=== PATIENT | male | born 1995 | race Caucasian/White ===

== ENCOUNTER 2017-05-27 00:48 | Day surgery (SDC) | payer OTHER ==
[~2017-05-27 00:48] MED LIST: ATOM40 PO; Bactrim Ds Tab1 EACH PO; CALCA400CH PO; CLON.1 PO; CROHNS MED; DIPH50 PO; METO5A PO; NALT50 PO; ONDA4ODT MM; ONDA4ODT PO; PRED10 PO; PROM25 PO; Prednisone20 MG PO; Purinethol50 MG PO; Remicade100 MG IV; SOLU CORTEF IV; Tylenol325 MG PO
[2017-05-27] MEDS ORDERED: INFLECTRA100 MG IV (14:08)
[2017-07-19] MEDS ORDERED: Remicade100 MG IV (11:16)
[2017-07-22] MEDS ORDERED: FAMO40 PO (09:12)
== END 2017-05-27 16:30 | disposition home or self-care (01) ==
LOC: ATC 00:48
DX: K50.90 Crohn's disease, unspecified, without complications (principal); Z83.79 Family history of other diseases of the digestive system
CPT/HCPCS: 96375; 96413; 96415; J1720; J7050; Q0163; Q5102-ZB

== ENCOUNTER 2017-09-07 21:31 | Emergency (ER) | payer OTHER ==
[~2017-09-07] VITALS: Ht 182.9 cm; Wt 63.5 kg
[~2017-09-07 21:31] MED LIST changes: +FAMO40 PO; +INFLECTRA100 MG IV
[2017-09-07 22:09] LABS: Hemoglobin 14.2 g/dL (13.5-17.5); Mean Corpuscular HGB 27.4 pg (26.0-34.0); Mean Corpuscular Volume 83 fL (80-100); Mean Platelet Volume 9.1 fL (9.1-12.4); Platelet Count 478 K/mm3 (150-400); RDW Coefficient Variation 14.3 % (11.7-14.2); RDW Standard Deviation 43.3 fL (35.1-46.3); Red Blood Cell Count 5.18 M/mm3 (4.30-5.90); White Blood Cell Count 14.08 K/mm3 (4.00-11.30)
[2017-09-07 22:28] LABS: Alanine Aminotransfer (ALT/SGP 23 U/L (12-78); Albumin, Blood 3.2 g/dL (3.4-5.0); Albumin/Globulin Ratio 0.6 (0.8-1.8); Alk Phos 68 U/L (50-136); Anion Gap 9 mmol/L (6-16); Aspartate Aminotrans (AST/SGOT 11 U/L (12-37); Bilirubin, Total 0.6 mg/dL (0.1-1.0); Blood Urea Nitrogen 7 mg/dL (8-24); Bun/Creatinine Ratio 6.9 (12.0-20.0); CO2, Blood 27 mmol/L (21-32); Chloride, Blood 96 mmol/L (98-108); Creatinine, Blood 1.01 mg/dL (0.60-1.20); Globulin, Blood 5.5 g/dL (2.2-4.0); Glomerular Filtration Rate >60 (60-); Glucose, Blood 108 mg/dL (70-99); Potassium, Blood 3.6 mmol/L (3.5-5.5); Sodium, Blood 132 mmol/L (136-145); Total Protein, Blood 8.7 g/dL (6.4-8.2)
[2017-09-07 22:54] LABS: BAND PERCENT MAN 43 % (0-8); BASOPHILS ABSOLUTE MAN 0.14 K/mm3 (0.00-0.23); BASOPHILS PERCENT MAN 1 % (0-2); EOSINOPHILS PERCENT MAN 0 % (0-6); LYMPHOCYTES % ATYPICAL MANUAL 2 % (0-0); LYMPHOCYTES ABSOLUTE MAN 1.83 K/mm3 (0.84-5.20); LYMPHOCYTES PERCENT MAN 11 % (21-46); MONOCYTES ABSOLUTE MAN 3.23 K/mm3 (0.16-1.47); MONOCYTES PERCENT MAN 23 % (4-13); NEUTROPHILS ABSOLUTE MAN 8.87 K/mm3 (1.96-9.15); SEG NEUTROPHILS PERCENT MAN 20 % (41-73); TOTAL CELLS COUNTED 100
== END 2017-09-07 23:56 | disposition home or self-care (01) ==
LOC: ER 21:31
PROVIDERS: Internal Medicine
DX: K50.10 Crohn's disease of large intestine without complications (principal); Z91.012 Allergy to eggs; Z88.8 Allergy status to other drugs, medicaments and biological substances; Z91.018 Allergy to other foods; Z79.899 Other long term (current) drug therapy
CPT/HCPCS: 36415; 80053; 85025; J7120

== ENCOUNTER 2017-09-16 00:15 | Day surgery (SDC) | payer OTHER | END 2017-09-16 16:54 | disposition home or self-care (01) | LOC: ATC 00:15 | DX: K50.10 Crohn's disease of large intestine without complications (principal); K64.8 Other hemorrhoids | CPT/HCPCS: 96375; 96413; 96415; J1720; J7050; Q0163; Q5103 ==

== ENCOUNTER 2017-12-09 00:18 | Day surgery (SDC) | payer OTHER | END 2017-12-09 16:24 | disposition home or self-care (01) | LOC: ATC 00:18 | DX: K50.10 Crohn's disease of large intestine without complications (principal) | CPT/HCPCS: 96375; 96413; 96415; J1720; J7050; Q0163; Q5103 ==

== ENCOUNTER 2018-01-06 00:23 | Day surgery (SDC) | payer OTHER | END 2018-01-06 16:08 | disposition home or self-care (01) | LOC: ATC 00:23 | DX: K50.90 Crohn's disease, unspecified, without complications (principal) | CPT/HCPCS: 96375; 96413; 96415; J1720; J7050; Q0163; Q5103 ==

== ENCOUNTER 2018-03-31 00:06 | Day surgery (SDC) | payer OTHER | END 2018-03-31 22:44 | disposition home or self-care (01) | LOC: ATC 00:06 | DX: K50.90 Crohn's disease, unspecified, without complications (principal); K64.4 Residual hemorrhoidal skin tags; K64.8 Other hemorrhoids | CPT/HCPCS: J1720; J7050; Q0163; Q5103 ==

== ENCOUNTER 2018-04-28 00:58 | Day surgery (SDC) | payer OTHER | END 2018-04-28 16:20 | disposition home or self-care (01) | LOC: ATC 00:58 | DX: K50.10 Crohn's disease of large intestine without complications (principal) | CPT/HCPCS: 36415; 82306; 82728; 83540; 83550; 96375; 96413; 96415; J1720; J7050; Q0163; Q5103 ==

== ENCOUNTER 2018-05-26 00:26 | Day surgery (SDC) | payer OTHER | END 2018-05-26 16:22 | disposition home or self-care (01) | LOC: ATC 00:26 | DX: K50.90 Crohn's disease, unspecified, without complications (principal) | CPT/HCPCS: 96375; 96413; 96415; J1720; J7050; Q0163; Q5103 ==

== ENCOUNTER 2018-07-21 00:27 | Day surgery (SDC) | payer OTHER | END 2018-07-21 16:19 | disposition home or self-care (01) | LOC: ATC 00:27 | DX: K50.90 Crohn's disease, unspecified, without complications (principal); K64.8 Other hemorrhoids | CPT/HCPCS: J1720; J7050; Q0163; Q5103 ==

== ENCOUNTER 2018-10-13 01:14 | Day surgery (SDC) | payer OTHER ==
[~2018-10-13 01:14] MED LIST changes: +ASCO500 PO; +THERA1 EACH PO
== END 2018-10-13 16:40 | disposition home or self-care (01) ==
LOC: ATC 01:14
DX: K50.90 Crohn's disease, unspecified, without complications (principal)
CPT/HCPCS: 96375; 96413; 96415; A9270; J1720; J7050; Q0163; Q5103

== ENCOUNTER 2018-11-10 02:11 | Day surgery (SDC) | payer OTHER | END 2018-11-10 17:06 | disposition home or self-care (01) | LOC: ATC 02:11 | DX: K50.10 Crohn's disease of large intestine without complications (principal) | CPT/HCPCS: 96375; 96413; 96415; A9270; J1720; J7050; Q0163; Q5103 ==

== ENCOUNTER 2018-12-08 00:32 | Day surgery (SDC) | payer OTHER | END 2018-12-08 16:15 | disposition home or self-care (01) | LOC: ATC 00:32 | DX: K50.10 Crohn's disease of large intestine without complications (principal); M81.0 Age-related osteoporosis without current pathological fracture; F81.9 Developmental disorder of scholastic skills, unspecified | CPT/HCPCS: 96375; 96413; 96415; A9270; J1200; J1720; J7050; Q5103 ==

== ENCOUNTER 2019-01-05 01:09 | Day surgery (SDC) | payer OTHER ==
--- NOTE | 2019-01-10 07:28 | NUR ---
PATIENT WAS GIVEN Inflimax 700 mg IV @ 125 mls a hour over two hours. Start time was 1415 endtime was 1620.
== END 2019-01-05 16:10 | disposition home or self-care (01) ==
LOC: ATC 01:09
DX: K50.10 Crohn's disease of large intestine without complications (principal); M81.0 Age-related osteoporosis without current pathological fracture; E55.9 Vitamin D deficiency, unspecified
CPT/HCPCS: 96375; 96413; 96415; A9270; J1720; J7050; Q0163; Q5103

== ENCOUNTER 2019-02-02 00:33 | Day surgery (SDC) | payer OTHER | END 2019-02-02 16:04 | disposition home or self-care (01) | LOC: ATC 00:33 | DX: K50.10 Crohn's disease of large intestine without complications (principal); M81.0 Age-related osteoporosis without current pathological fracture; E55.9 Vitamin D deficiency, unspecified; F81.9 Developmental disorder of scholastic skills, unspecified; Z79.899 Other long term (current) drug therapy | CPT/HCPCS: A9270; J1720; J7050; Q0163; Q5103 ==

== ENCOUNTER 2019-03-02 00:16 | Day surgery (SDC) | payer OTHER | END 2019-03-02 16:53 | disposition home or self-care (01) | LOC: ATC 00:16 | DX: K50.10 Crohn's disease of large intestine without complications (principal); M81.0 Age-related osteoporosis without current pathological fracture; K59.00 Constipation, unspecified; F41.9 Anxiety disorder, unspecified; Z91.012 Allergy to eggs; Z91.018 Allergy to other foods; Z79.899 Other long term (current) drug therapy; Z79.52 Long term (current) use of systemic steroids | CPT/HCPCS: 96375; 96413; 96415; A9270; J1720; J7050; Q5103 ==

== ENCOUNTER 2019-03-30 00:38 | Day surgery (SDC) | payer OTHER | END 2019-03-30 23:43 | disposition home or self-care (01) | LOC: ATC 00:38 | DX: K50.90 Crohn's disease, unspecified, without complications (principal); M19.90 Unspecified osteoarthritis, unspecified site; E55.9 Vitamin D deficiency, unspecified; F81.9 Developmental disorder of scholastic skills, unspecified; Z79.899 Other long term (current) drug therapy | CPT/HCPCS: 96375; 96413; 96415; A9270; J1720; J7050; Q0163; Q5103 ==

== ENCOUNTER 2019-04-27 02:11 | Day surgery (SDC) | payer OTHER | END 2019-04-27 16:35 | disposition home or self-care (01) | LOC: ATC 02:11 | DX: K50.10 Crohn's disease of large intestine without complications (principal); M19.90 Unspecified osteoarthritis, unspecified site; E55.9 Vitamin D deficiency, unspecified; F81.9 Developmental disorder of scholastic skills, unspecified | CPT/HCPCS: 96375; 96413; 96415; A9270; J1720; J7050; Q0163; Q5103 ==

== ENCOUNTER 2019-05-25 02:03 | Day surgery (SDC) | payer OTHER | END 2019-05-25 16:35 | disposition home or self-care (01) | LOC: ATC 02:03 | DX: K50.10 Crohn's disease of large intestine without complications (principal); M19.90 Unspecified osteoarthritis, unspecified site | CPT/HCPCS: 96374; 96413; 96415; A9270; J1720; J7050; Q0163; Q5103 ==

== ENCOUNTER 2019-06-22 02:40 | Day surgery (SDC) | payer OTHER | END 2019-06-22 16:30 | disposition home or self-care (01) | LOC: ATC 02:40 | DX: K50.10 Crohn's disease of large intestine without complications (principal); M81.0 Age-related osteoporosis without current pathological fracture; E55.9 Vitamin D deficiency, unspecified; F81.9 Developmental disorder of scholastic skills, unspecified | CPT/HCPCS: 96375; 96413; 96415; A9270; J1720; J7050; Q0163; Q5103 ==

== ENCOUNTER 2019-08-17 00:13 | Day surgery (SDC) | payer OTHER | END 2019-08-17 16:36 | disposition home or self-care (01) | LOC: ATC 00:13 | DX: K50.90 Crohn's disease, unspecified, without complications (principal) | CPT/HCPCS: A9270; J1720; J7050; Q0163; Q5103 ==

== ENCOUNTER 2019-09-14 00:22 | Day surgery (SDC) | payer OTHER ==
[2019-09-14] MEDS ORDERED: INFLECTRA100 MG IV (15:17)
== END 2019-09-14 16:54 | disposition home or self-care (01) ==
LOC: ATC 00:22
DX: K50.90 Crohn's disease, unspecified, without complications (principal); Z79.899 Other long term (current) drug therapy; M81.0 Age-related osteoporosis without current pathological fracture; E55.9 Vitamin D deficiency, unspecified; F81.9 Developmental disorder of scholastic skills, unspecified
CPT/HCPCS: 96375; 96413; 96415; A9270; J1720; J1745; J7050; Q0163; Q5103

== ENCOUNTER 2019-10-12 01:52 | Day surgery (SDC) | payer OTHER ==
[~2019-10-12 01:52] MED LIST changes: +MULTI VITAMIN1 EACH PO; -THERA1 EACH PO
== END 2019-10-12 16:22 | disposition home or self-care (01) ==
LOC: ATC 01:52
DX: K50.90 Crohn's disease, unspecified, without complications (principal); M19.90 Unspecified osteoarthritis, unspecified site; E55.9 Vitamin D deficiency, unspecified; F81.9 Developmental disorder of scholastic skills, unspecified
CPT/HCPCS: 96375; 96413; 96415; A9270; J1720; J7050; Q5103

== ENCOUNTER 2020-01-04 00:23 | Day surgery (SDC) | payer OTHER | END 2020-01-04 15:58 | disposition home or self-care (01) | LOC: ATC 00:23 | DX: K50.90 Crohn's disease, unspecified, without complications (principal) | CPT/HCPCS: A9270; J1720; J7050; Q0163; Q5103 ==

== ENCOUNTER 2020-02-01 02:03 | Day surgery (SDC) | payer OTHER | END 2020-02-01 16:15 | disposition home or self-care (01) | LOC: ATC 02:03 | DX: K50.10 Crohn's disease of large intestine without complications (principal); J30.2 Other seasonal allergic rhinitis; M81.0 Age-related osteoporosis without current pathological fracture; E55.9 Vitamin D deficiency, unspecified; F81.9 Developmental disorder of scholastic skills, unspecified; F84.9 Pervasive developmental disorder, unspecified; Z79.899 Other long term (current) drug therapy; Z91.012 Allergy to eggs; Z91.018 Allergy to other foods | CPT/HCPCS: 96375; 96413; 96415; A9270; J1720; J7050; Q0163; Q5103 ==

== ENCOUNTER 2020-03-05 02:52 | Day surgery (SDC) | payer OTHER | END 2020-03-05 16:10 | disposition home or self-care (01) | LOC: ATC 02:52 | DX: K50.10 Crohn's disease of large intestine without complications (principal); J30.2 Other seasonal allergic rhinitis; F84.9 Pervasive developmental disorder, unspecified; M81.0 Age-related osteoporosis without current pathological fracture; E55.9 Vitamin D deficiency, unspecified; Z79.899 Other long term (current) drug therapy; Z91.012 Allergy to eggs; Z91.018 Allergy to other foods | CPT/HCPCS: 96375; 96413; 96415; A9270; J1720; J7050; Q0163; Q5103 ==

== ENCOUNTER 2020-04-02 05:47 | Day surgery (SDC) | payer OTHER | END 2020-04-02 15:59 | disposition home or self-care (01) | LOC: ATC 05:47 | DX: K50.10 Crohn's disease of large intestine without complications (principal); M81.0 Age-related osteoporosis without current pathological fracture; Z79.899 Other long term (current) drug therapy; Z91.018 Allergy to other foods; Z91.012 Allergy to eggs | CPT/HCPCS: 96375; 96413; 96415; A9270; J1720; J7050; Q0163; Q5103 ==

== ENCOUNTER 2020-05-02 00:21 | Day surgery (SDC) | payer OTHER | END 2020-05-02 16:05 | disposition home or self-care (01) | LOC: ATC 00:21 | DX: K50.10 Crohn's disease of large intestine without complications (principal); F81.9 Developmental disorder of scholastic skills, unspecified; Z80.0 Family history of malignant neoplasm of digestive organs; Z91.018 Allergy to other foods | CPT/HCPCS: 96375; 96413; 96415; A9270; J1720; J7050; Q5103 ==

== ENCOUNTER 2020-05-30 00:56 | Day surgery (SDC) | payer OTHER ==
[~2020-05-30] VITALS: Wt 68.8 kg
== END 2020-05-30 16:28 | disposition home or self-care (01) ==
LOC: ATC 00:56
DX: K50.10 Crohn's disease of large intestine without complications (principal); M81.8 Other osteoporosis without current pathological fracture; Z87.310 Personal history of (healed) osteoporosis fracture; F81.9 Developmental disorder of scholastic skills, unspecified; Z80.0 Family history of malignant neoplasm of digestive organs; Z91.018 Allergy to other foods
CPT/HCPCS: 96375; 96413; 96415; A9270; J1200; J1720; J7050; Q5103

== ENCOUNTER 2020-06-27 00:49 | Day surgery (SDC) | payer OTHER ==
[~2020-06-27] VITALS: Wt 70.2 kg
== END 2020-06-27 16:55 | disposition home or self-care (01) ==
LOC: ATC 00:49
DX: K50.10 Crohn's disease of large intestine without complications (principal); M81.8 Other osteoporosis without current pathological fracture; Z87.310 Personal history of (healed) osteoporosis fracture; F81.9 Developmental disorder of scholastic skills, unspecified; Z80.0 Family history of malignant neoplasm of digestive organs; Z91.018 Allergy to other foods
CPT/HCPCS: 96375; 96413; 96415; A9270; J1720; J7050; J7512; Q5103

== ENCOUNTER 2020-08-22 00:11 | Day surgery (SDC) | payer OTHER ==
[~2020-08-22] VITALS: Wt 71.9 kg
== END 2020-08-22 16:25 | disposition home or self-care (01) ==
LOC: ATC 00:11
DX: K50.10 Crohn's disease of large intestine without complications (principal); M81.0 Age-related osteoporosis without current pathological fracture
CPT/HCPCS: 96375; 96413; 96415; A9270; J1720; J7050; Q5103

== ENCOUNTER 2020-09-19 04:28 | Day surgery (SDC) | payer OTHER | END 2020-09-19 15:50 | disposition home or self-care (01) | LOC: ATC 04:28 | DX: K50.10 Crohn's disease of large intestine without complications (principal); Z91.018 Allergy to other foods | CPT/HCPCS: 96375; 96413; 96415; A9270; J1720; J7050; Q5103 ==

== ENCOUNTER 2020-10-17 00:24 | Day surgery (SDC) | payer OTHER | END 2020-10-17 16:00 | disposition home or self-care (01) | LOC: ATC 00:24 | DX: K50.90 Crohn's disease, unspecified, without complications (principal) | CPT/HCPCS: 96375; 96413; 96415; A9270; J1720; J7050; Q5103 ==

== ENCOUNTER 2020-11-14 00:08 | Day surgery (SDC) | payer OTHER | END 2020-11-14 15:49 | disposition home or self-care (01) | LOC: ATC 00:08 | DX: K50.10 Crohn's disease of large intestine without complications (principal); F81.9 Developmental disorder of scholastic skills, unspecified; Z79.899 Other long term (current) drug therapy; Z80.0 Family history of malignant neoplasm of digestive organs; Z91.018 Allergy to other foods | CPT/HCPCS: 96375; 96413; A9270; J1720; J7050; Q5103 ==

== ENCOUNTER 2020-12-12 00:24 | Day surgery (SDC) | payer OTHER ==
[~2020-12-12] VITALS: Wt 68.4 kg
== END 2020-12-12 15:47 | disposition home or self-care (01) ==
LOC: ATC 00:24
DX: K50.90 Crohn's disease, unspecified, without complications (principal)
CPT/HCPCS: 96375; 96413; 96415; A9270; J1720; J7050; Q5103

== ENCOUNTER 2021-01-09 00:25 | Day surgery (SDC) | payer OTHER | END 2021-01-09 16:15 | disposition home or self-care (01) | LOC: ATC 00:25 | DX: K50.90 Crohn's disease, unspecified, without complications (principal) | CPT/HCPCS: A9270; J1720; J7050; Q5103 ==

== ENCOUNTER 2021-02-06 05:09 | Day surgery (SDC) | payer OTHER ==
[~2021-02-06] VITALS: Wt 67.0 kg
== END 2021-02-06 16:25 | disposition home or self-care (01) ==
LOC: ATC 05:09
DX: K50.90 Crohn's disease, unspecified, without complications (principal); E55.9 Vitamin D deficiency, unspecified; Z79.899 Other long term (current) drug therapy; Z91.02 Food additives allergy status; Z80.0 Family history of malignant neoplasm of digestive organs
CPT/HCPCS: 96375; 96413; 96415; A9270; J1720; J7050; Q5103

== ENCOUNTER 2021-03-06 01:47 | Day surgery (SDC) | payer OTHER | END 2021-03-06 10:54 | disposition home or self-care (01) | LOC: ATC 01:47 | DX: K50.10 Crohn's disease of large intestine without complications (principal); Z91.018 Allergy to other foods | CPT/HCPCS: A9270; J1720; J7050; Q5103 ==

== ENCOUNTER 2021-04-02 00:22 | Day surgery (SDC) | payer OTHER | END 2021-04-02 11:18 | disposition home or self-care (01) | LOC: ATC 00:22 | DX: K50.10 Crohn's disease of large intestine without complications (principal); Z80.0 Family history of malignant neoplasm of digestive organs; Z91.018 Allergy to other foods | CPT/HCPCS: 96375; 96413; A9270; J1720; J7050; Q5103 ==

== ENCOUNTER 2021-05-01 03:51 | Day surgery (SDC) | payer OTHER ==
[~2021-05-01] VITALS: Wt 67.4 kg
== END 2021-05-01 16:30 | disposition home or self-care (01) ==
LOC: ATC 03:51
DX: K50.90 Crohn's disease, unspecified, without complications (principal)
CPT/HCPCS: A9270; J1720; J7050; Q5103

== ENCOUNTER 2021-05-29 03:09 | Day surgery (SDC) | payer OTHER ==
[~2021-05-29] VITALS: Wt 66.5 kg
== END 2021-05-29 16:09 | disposition home or self-care (01) ==
LOC: ATC 03:09
DX: K50.10 Crohn's disease of large intestine without complications (principal); Z91.018 Allergy to other foods
CPT/HCPCS: A9270; J1720; J7050; Q5103

== ENCOUNTER 2021-07-24 00:54 | Day surgery (SDC) | payer OTHER ==
[~2021-07-24] VITALS: Wt 66.8 kg
== END 2021-07-24 16:55 | disposition home or self-care (01) ==
LOC: ATC 00:54
DX: K50.10 Crohn's disease of large intestine without complications (principal); Z91.018 Allergy to other foods
CPT/HCPCS: A9270; J1720; J7050; Q5103

== ENCOUNTER 2021-09-18 08:06 | Day surgery (SDC) | payer OTHER ==
[~2021-09-18] VITALS: Wt 65.5 kg
== END 2021-09-18 16:15 | disposition home or self-care (01) ==
LOC: ATC 08:06
DX: K50.10 Crohn's disease of large intestine without complications (principal); Z80.0 Family history of malignant neoplasm of digestive organs; F81.9 Developmental disorder of scholastic skills, unspecified; M80.80XA Other osteoporosis with current pathological fracture, unspecified site, initial encounter for fracture
CPT/HCPCS: A9270; J1720; J7050; Q5103

== ENCOUNTER 2021-10-16 00:38 | Day surgery (SDC) | payer OTHER ==
[~2021-10-16] VITALS: Wt 69.0 kg
== END 2021-10-16 16:20 | disposition home or self-care (01) ==
LOC: ATC 00:38
DX: K50.90 Crohn's disease, unspecified, without complications (principal)
CPT/HCPCS: 96375; 96413; 96415; A9270; J1720; J7050; Q5103

== ENCOUNTER 2021-12-11 01:20 | Day surgery (SDC) | payer OTHER ==
[~2021-12-11] VITALS: Wt 68.3 kg
== END 2021-12-11 16:29 | disposition home or self-care (01) ==
LOC: ATC 01:20
DX: K50.90 Crohn's disease, unspecified, without complications (principal)
CPT/HCPCS: A9270; J1720; J7050; Q5103

== ENCOUNTER 2022-01-08 02:07 | Day surgery (SDC) | payer OTHER | END 2022-01-08 16:05 | disposition home or self-care (01) | LOC: ATC 02:07 | DX: K50.90 Crohn's disease, unspecified, without complications (principal); M81.8 Other osteoporosis without current pathological fracture | CPT/HCPCS: 96375; 96413; 96415; A9270; J1720; J7050; Q5103 ==

== ENCOUNTER 2022-02-05 02:07 | Day surgery (SDC) | payer OTHER ==
[~2022-02-05] VITALS: Wt 69.4 kg
== END 2022-02-05 16:00 | disposition home or self-care (01) ==
LOC: ATC 02:07
DX: K50.10 Crohn's disease of large intestine without complications (principal); F81.9 Developmental disorder of scholastic skills, unspecified; Z80.0 Family history of malignant neoplasm of digestive organs
CPT/HCPCS: A9270; J1720; J7050; Q5103

== ENCOUNTER 2022-03-03 00:45 | Day surgery (SDC) | payer OTHER | END 2022-03-03 16:45 | disposition home or self-care (01) | LOC: ATC 00:45 | DX: K50.10 Crohn's disease of large intestine without complications (principal) | CPT/HCPCS: A9270; J1720; J7050; Q5103 ==

== ENCOUNTER 2022-03-24 11:34 | Day surgery (SDC) | payer OTHER ==
[~2022-03-24] VITALS: Ht 182.9 cm; Wt 62.6 kg
--- NOTE | 2022-03-24 13:50 | NUR ---
03/24/22 1350 [facility] POST COLONOSCOPY- BP READING LOW AT 1344 84/54 DR SMITH AWARE. RN OPEN FLUID WIDE OPEN, NO OTHER ORDERS, AT 1346 BP 70/50 DR AWARE NO NEW ORDERS. BP 1350 85/55 DR AWARE PT AWAKE
== END 2022-03-24 14:36 | disposition home or self-care (01) ==
LOC: ORSCSDS 11:34
PROVIDERS: Internal Medicine Gastroenterology
PROC: 0DBB8ZX Excision of Ileum, Via Natural or Artificial Opening Endoscopic, Diagnostic (ICD-10-PCS; principal; 2022-03-24 13:00)
PROC: 0DBE8ZX Excision of Large Intestine, Via Natural or Artificial Opening Endoscopic, Diagnostic (ICD-10-PCS; principal; 2022-03-24 13:00)
DX: K50.90 Crohn's disease, unspecified, without complications (principal); Z80.0 Family history of malignant neoplasm of digestive organs; Z79.899 Other long term (current) drug therapy
CPT/HCPCS: 82652; 88305; J2250; J2704; J7120

== ENCOUNTER 2022-04-01 01:04 | Day surgery (SDC) | payer OTHER | END 2022-04-01 16:03 | disposition home or self-care (01) | LOC: ATC 01:04 | DX: K50.90 Crohn's disease, unspecified, without complications (principal); M80.80XA Other osteoporosis with current pathological fracture, unspecified site, initial encounter for fracture; E55.9 Vitamin D deficiency, unspecified; F81.9 Developmental disorder of scholastic skills, unspecified; Z80.0 Family history of malignant neoplasm of digestive organs | CPT/HCPCS: A9270; J1720; J7050; Q5103 ==

== ENCOUNTER 2022-05-28 00:20 | Day surgery (SDC) | payer OTHER | END 2022-05-28 11:30 | disposition home or self-care (01) | LOC: ATC 00:20 | DX: K50.90 Crohn's disease, unspecified, without complications (principal) | CPT/HCPCS: A9270; J1720; J7050; Q5103 ==

== ENCOUNTER 2022-06-25 02:02 | Day surgery (SDC) | payer OTHER ==
[~2022-06-25] VITALS: Wt 65.7 kg
== END 2022-06-25 11:32 | disposition home or self-care (01) ==
LOC: ATC 02:02
DX: K50.90 Crohn's disease, unspecified, without complications (principal)
CPT/HCPCS: 96375; 96413; 96415; A9270; J1720; J7050; Q5103

== ENCOUNTER 2022-07-23 01:07 | Day surgery (SDC) | payer OTHER ==
[~2022-07-23] VITALS: Wt 67.7 kg
[2022-07-23 08:45] VITALS: BP 142/89
== END 2022-07-23 11:36 | disposition home or self-care (01) ==
LOC: ATC 01:07
DX: K50.90 Crohn's disease, unspecified, without complications (principal)
CPT/HCPCS: 96375; 96413; 96415; A9270; J1720; J7050; Q5103

== ENCOUNTER 2022-08-20 00:34 | Day surgery (SDC) | payer OTHER ==
[2022-08-20 10:00] VITALS: BP 108/62
== END 2022-08-20 11:31 | disposition home or self-care (01) ==
LOC: ATC 00:34
DX: K50.90 Crohn's disease, unspecified, without complications (principal)
CPT/HCPCS: 96375; 96413; 96415; A9270; J1720; J7050; Q5103

== ENCOUNTER 2022-09-17 03:04 | Day surgery (SDC) | payer OTHER ==
[~2022-09-17] VITALS: Wt 66.9 kg
[2022-09-17 09:05] VITALS: BP 138/72
== END 2022-09-17 11:46 | disposition home or self-care (01) ==
LOC: ATC 03:04
DX: K50.10 Crohn's disease of large intestine without complications (principal)
CPT/HCPCS: 96374; 96413; 96415; A9270; J1720; J7050; Q5103

== ENCOUNTER 2022-10-15 01:49 | Day surgery (SDC) | payer OTHER ==
[~2022-10-15] VITALS: Wt 67.1 kg
[2022-10-15 08:46] VITALS: BP 110/78
== END 2022-10-15 11:20 | disposition home or self-care (01) ==
LOC: ATC 01:49
DX: K50.90 Crohn's disease, unspecified, without complications (principal); Z91.018 Allergy to other foods; M81.0 Age-related osteoporosis without current pathological fracture
CPT/HCPCS: 96413; 96415; A9270; J1720; J7050; Q5103

== ENCOUNTER 2022-11-12 01:10 | Day surgery (SDC) | payer OTHER ==
[~2022-11-12] VITALS: Wt 66.5 kg
[2022-11-12 08:48] VITALS: BP 135/80
== END 2022-11-12 11:28 | disposition home or self-care (01) ==
LOC: ATC 01:10
DX: K50.10 Crohn's disease of large intestine without complications (principal); Z91.018 Allergy to other foods; M81.8 Other osteoporosis without current pathological fracture
CPT/HCPCS: 96375; 96413; 96415; A9270; J1720; J7050; Q5103

== ENCOUNTER 2022-12-10 00:44 | Day surgery (SDC) | payer OTHER ==
[2022-12-10 09:05] VITALS: BP 99/61
== END 2022-12-10 11:55 | disposition home or self-care (01) ==
LOC: ATC 00:44
DX: K50.10 Crohn's disease of large intestine without complications (principal); E55.9 Vitamin D deficiency, unspecified; M81.0 Age-related osteoporosis without current pathological fracture; Z80.0 Family history of malignant neoplasm of digestive organs
CPT/HCPCS: 96375; 96413; 96415; A9270; J1720; J7050; Q5103

== ENCOUNTER 2023-01-07 04:44 | Day surgery (SDC) | payer OTHER ==
[2023-01-07 09:06] VITALS: BP 117/68
== END 2023-01-07 11:33 | disposition home or self-care (01) ==
LOC: ATC 04:44
DX: K50.90 Crohn's disease, unspecified, without complications (principal)
CPT/HCPCS: 96375; 96413; 96415; A9270; J1720; J7050; Q5103

== ENCOUNTER 2023-02-04 02:49 | Day surgery (SDC) | payer OTHER ==
[2023-02-04 08:56] VITALS: BP 114/68
== END 2023-02-04 23:02 | disposition home or self-care (01) ==
LOC: ATC 02:49
DX: K50.10 Crohn's disease of large intestine without complications (principal)
CPT/HCPCS: 96375; 96413; 96415; A9270; J1720; J7050; Q5103

== ENCOUNTER 2023-03-02 02:17 | Day surgery (SDC) | payer OTHER ==
[2023-03-02 08:54] VITALS: BP 118/81
== END 2023-03-02 12:28 | disposition home or self-care (01) ==
LOC: ATC 02:17
DX: K50.10 Crohn's disease of large intestine without complications (principal); M81.0 Age-related osteoporosis without current pathological fracture; E55.9 Vitamin D deficiency, unspecified
CPT/HCPCS: 96375; 96413; 96415; A9270; J1720; J7050; Q5103

== ENCOUNTER 2023-04-01 03:04 | Day surgery (SDC) | payer OTHER ==
[2023-04-01 08:45] VITALS: BP 135/79
== END 2023-04-01 12:00 | disposition home or self-care (01) ==
LOC: ATC 03:04
DX: K50.10 Crohn's disease of large intestine without complications (principal)
CPT/HCPCS: 96375; 96413; 96415; A9270; J1720; J7050; Q5103

== ENCOUNTER 2023-04-29 01:12 | Day surgery (SDC) | payer OTHER ==
[2023-04-29 08:58] VITALS: BP 131/77
== END 2023-04-29 11:37 | disposition home or self-care (01) ==
LOC: ATC 01:12
DX: K50.90 Crohn's disease, unspecified, without complications (principal); E55.9 Vitamin D deficiency, unspecified; M81.0 Age-related osteoporosis without current pathological fracture; Z80.0 Family history of malignant neoplasm of digestive organs
CPT/HCPCS: 96375; 96413; 96415; A9270; J1720; J7050; Q5103

== ENCOUNTER 2023-05-27 01:14 | Day surgery (SDC) | payer OTHER ==
[~2023-05-27] VITALS: Wt 68.8 kg
[2023-05-27] MEDS ORDERED: Infliximab-DYYB 700 MG in NS 250 ML IV SCH (06:00)
[2023-05-27] MEDS ORDERED: DiphenhydrAMINE HCL 25 MG Cap PO PRN (07:05)
[2023-05-27] MEDS ORDERED: Acetaminophen 325 MG TABLET PO SCH (07:05)
[2023-05-27] MEDS ORDERED: Hydrocortisone Sod Succinate 100 MG Vial IV SCH (07:05)
[2023-05-27 09:08] VITALS: BP 133/84
[2023-05-27 09:52] VITALS: BP 128/74
[2023-05-27 10:08] VITALS: BP 118/76
[2023-05-27 10:21] VITALS: BP 114/78
[2023-05-27 10:36] VITALS: BP 123/70
[2023-05-27 10:52] VITALS: BP 122/79
== END 2023-05-27 11:37 | disposition home or self-care (01) ==
LOC: ATC 01:14
DX: K50.10 Crohn's disease of large intestine without complications (principal); M81.0 Age-related osteoporosis without current pathological fracture; Z80.0 Family history of malignant neoplasm of digestive organs
CPT/HCPCS: 96413; 96415; A9270; J1720; J7050; Q5103

== ENCOUNTER 2023-08-19 05:05 | Day surgery (SDC) | payer OTHER ==
[2023-08-19 08:41] VITALS: BP 124/73
== END 2023-08-19 11:44 | disposition home or self-care (01) ==
LOC: ATC 05:05
DX: K50.90 Crohn's disease, unspecified, without complications (principal); E55.9 Vitamin D deficiency, unspecified; M81.0 Age-related osteoporosis without current pathological fracture; Z80.0 Family history of malignant neoplasm of digestive organs

== ENCOUNTER 2023-10-14 02:48 | Day surgery (SDC) | payer OTHER ==
[~2023-10-14] VITALS: Wt 67.5 kg
[2023-10-14] MEDS ORDERED: Infliximab-DYYB 700 MG in NS 250 ML IV SCH (06:00)
[2023-10-14] MEDS ORDERED: Acetaminophen 325 MG TABLET PO SCH (06:45)
[2023-10-14] MEDS ORDERED: DiphenhydrAMINE HCL 25 MG Cap PO SCH (06:45)
[2023-10-14] MEDS ORDERED: Hydrocortisone Sod Succinate 100 MG Vial IV SCH (06:45)
[2023-10-14 07:40] VITALS: BP 159/85
== END 2023-10-14 10:25 | disposition home or self-care (01) ==
LOC: ATC 02:48
DX: K50.10 Crohn's disease of large intestine without complications (principal); Z80.0 Family history of malignant neoplasm of digestive organs
CPT/HCPCS: 96375; 96413; 96415; A9270; J1720; J7050; Q5103

== ENCOUNTER 2023-12-09 01:22 | Day surgery (SDC) | payer OTHER ==
[2023-12-09] MEDS ORDERED: Infliximab-DYYB 700 MG in NS 250 ML IV SCH (06:00)
[2023-12-09] MEDS ORDERED: Acetaminophen 325 MG TABLET PO PRN (07:25)
[2023-12-09] MEDS ORDERED: DiphenhydrAMINE HCL 25 MG Cap PO PRN (07:25)
[2023-12-09] MEDS ORDERED: Hydrocortisone Sod Succinate 100 MG Vial IV SCH (07:25)
[2023-12-09 08:42] VITALS: BP 126/68
== END 2023-12-09 11:32 | disposition home or self-care (01) ==
LOC: ATC 01:22
DX: K50.10 Crohn's disease of large intestine without complications (principal); Z80.0 Family history of malignant neoplasm of digestive organs; Z91.018 Allergy to other foods
CPT/HCPCS: 96375; 96413; 96415; A9270; J1720; J7050; Q5103

== ENCOUNTER 2024-01-06 01:22 | Day surgery (SDC) | payer OTHER ==
[2024-01-06] MEDS ORDERED: Infliximab-DYYB 700 MG in NS 250 ML IV SCH (06:00)
[2024-01-06] MEDS ORDERED: Hydrocortisone Sod Succinate 100 MG Vial IV SCH (06:55)
[2024-01-06] MEDS ORDERED: Acetaminophen 325 MG TABLET PO SCH (06:55)
[2024-01-06] MEDS ORDERED: DiphenhydrAMINE HCL 25 MG Cap PO SCH (06:55)
[2024-01-06 08:41] VITALS: BP 146/78
== END 2024-01-06 11:19 | disposition home or self-care (01) ==
LOC: ATC 01:22
DX: K50.10 Crohn's disease of large intestine without complications (principal); M81.0 Age-related osteoporosis without current pathological fracture; E55.9 Vitamin D deficiency, unspecified; Z80.0 Family history of malignant neoplasm of digestive organs
CPT/HCPCS: 96375; 96413; 96415; A9270; J1720; J7050; Q5103

== ENCOUNTER 2024-01-17 10:07 | Day surgery (SDC) | payer OTHER ==
[~2024-01-17] VITALS: Ht 182.9 cm; Wt 64.9 kg
[~2024-01-17 10:07] MED LIST changes: +Lactated Ringer's 1,000 ML IV ONE; +propofoL 50 ML IV ONE
[2024-01-17] MEDS ORDERED: Lactated Ringer's 1,000 ML IV ONE (11:20)
[2024-01-17 12:38] VITALS: BP 99/59
== END 2024-01-17 12:41 | disposition home or self-care (01) ==
LOC: ORSCSDS 10:07
PROVIDERS: Specialist
PROC: 0DBP8ZX Excision of Rectum, Via Natural or Artificial Opening Endoscopic, Diagnostic (ICD-10-PCS; principal; 2024-01-17 12:15)
PROC: 0DBL8ZX Excision of Transverse Colon, Via Natural or Artificial Opening Endoscopic, Diagnostic (ICD-10-PCS; principal; 2024-01-17 12:15)
PROC: 0DBN8ZX Excision of Sigmoid Colon, Via Natural or Artificial Opening Endoscopic, Diagnostic (ICD-10-PCS; principal; 2024-01-17 12:15)
PROC: 0DBH8ZX Excision of Cecum, Via Natural or Artificial Opening Endoscopic, Diagnostic (ICD-10-PCS; principal; 2024-01-17 12:15)
PROC: 0DBM8ZX Excision of Descending Colon, Via Natural or Artificial Opening Endoscopic, Diagnostic (ICD-10-PCS; principal; 2024-01-17 12:15)
DX: K50.90 Crohn's disease, unspecified, without complications (principal); K63.5 Polyp of colon; Z79.899 Other long term (current) drug therapy
CPT/HCPCS: 88305; J2704; J7120

== ENCOUNTER 2024-02-03 02:38 | Day surgery (SDC) | payer OTHER ==
[~2024-02-03 02:38] MED LIST changes: -Lactated Ringer's 1,000 ML IV ONE; -propofoL 50 ML IV ONE
[2024-02-03] MEDS ORDERED: Infliximab-DYYB 700 MG in NS 250 ML IV SCH (06:00)
[2024-02-03] MEDS ORDERED: DiphenhydrAMINE HCL 25 MG Cap PO SCH (07:15)
[2024-02-03] MEDS ORDERED: Hydrocortisone Sod Succinate 100 MG Vial IV SCH (07:15)
[2024-02-03] MEDS ORDERED: Acetaminophen 325 MG TABLET PO SCH (07:15)
[2024-02-03 08:48] VITALS: BP 132/79
== END 2024-02-03 11:45 | disposition home or self-care (01) ==
LOC: ATC 02:38
DX: K50.10 Crohn's disease of large intestine without complications (principal); M81.0 Age-related osteoporosis without current pathological fracture; E55.9 Vitamin D deficiency, unspecified; Z80.0 Family history of malignant neoplasm of digestive organs
CPT/HCPCS: 96375; 96413; 96415; A9270; J1720; J7050; Q5103

== ENCOUNTER 2024-03-02 00:40 | Day surgery (SDC) | payer OTHER ==
[~2024-03-02] VITALS: Wt 68.5 kg
[2024-03-02] MEDS ORDERED: Infliximab-DYYB 700 MG in NS 250 ML IV SCH (06:00)
[2024-03-02] MEDS ORDERED: DiphenhydrAMINE HCL 25 MG Cap PO SCH (07:05)
[2024-03-02] MEDS ORDERED: Acetaminophen 325 MG TABLET PO SCH (07:05)
[2024-03-02] MEDS ORDERED: Hydrocortisone Sod Succinate 100 MG Vial IV SCH (07:05)
[2024-03-02 08:57] VITALS: BP 132/79
== END 2024-03-02 11:44 | disposition home or self-care (01) ==
LOC: ATC 00:40
DX: K50.90 Crohn's disease, unspecified, without complications (principal); M81.0 Age-related osteoporosis without current pathological fracture; Z79.899 Other long term (current) drug therapy; Z91.02 Food additives allergy status; Z80.0 Family history of malignant neoplasm of digestive organs
CPT/HCPCS: 96375; 96413; 96415; A9270; J1720; J7050; Q5103

== ENCOUNTER 2024-03-30 06:17 | Day surgery (SDC) | payer OTHER ==
[~2024-03-30 06:17] MED LIST changes: +Infliximab-DYYB 700 MG in NS 250 ML IV SCH
[2024-03-30] MEDS ORDERED: Hydrocortisone Sod Succinate 100 MG Vial IV SCH (06:50)
[2024-03-30] MEDS ORDERED: DiphenhydrAMINE HCL 25 MG Cap PO SCH (06:50)
[2024-03-30] MEDS ORDERED: Acetaminophen 325 MG TABLET PO SCH (06:50)
[2024-03-30 08:50] VITALS: BP 145/89
== END 2024-03-30 11:31 | disposition home or self-care (01) ==
LOC: ATC 06:17
DX: K50.10 Crohn's disease of large intestine without complications (principal); M81.0 Age-related osteoporosis without current pathological fracture; E55.9 Vitamin D deficiency, unspecified; Z80.0 Family history of malignant neoplasm of digestive organs
CPT/HCPCS: 96375; 96413; 96415; A9270; J1720; J7050; Q5103

== ENCOUNTER 2024-04-27 03:34 | Day surgery (SDC) | payer OTHER ==
[~2024-04-27] VITALS: Wt 69.9 kg
[~2024-04-27 03:34] MED LIST changes: -Infliximab-DYYB 700 MG in NS 250 ML IV SCH
[2024-04-27] MEDS ORDERED: Infliximab-DYYB 700 MG in NS 250 ML IV SCH (06:00)
[2024-04-27] MEDS ORDERED: DiphenhydrAMINE HCL 25 MG Cap PO SCH (07:00)
[2024-04-27] MEDS ORDERED: Hydrocortisone Sod Succinate 100 MG Vial IV SCH (07:00)
[2024-04-27] MEDS ORDERED: Acetaminophen 325 MG TABLET PO SCH (07:00)
[2024-04-27 08:58] VITALS: BP 126/72
== END 2024-04-27 12:02 | disposition home or self-care (01) ==
LOC: ATC 03:34
DX: K50.10 Crohn's disease of large intestine without complications (principal); Z80.0 Family history of malignant neoplasm of digestive organs; Z79.899 Other long term (current) drug therapy
CPT/HCPCS: 96375; 96413; 96415; A9270; J1720; J7050; Q5103

== ENCOUNTER 2024-05-25 02:35 | Day surgery (SDC) | payer OTHER ==
[2024-05-25] MEDS ORDERED: Infliximab-DYYB 700 MG in NS 250 ML IV SCH (06:00)
[2024-05-25] MEDS ORDERED: DiphenhydrAMINE HCL 25 MG Cap PO SCH (06:55)
[2024-05-25] MEDS ORDERED: Hydrocortisone Sod Succinate 100 MG Vial IV SCH (06:55)
[2024-05-25] MEDS ORDERED: Acetaminophen 325 MG TABLET PO SCH (06:55)
[2024-05-25 08:51] VITALS: BP 149/78
== END 2024-05-25 11:36 | disposition home or self-care (01) ==
LOC: ATC 02:35
DX: K50.10 Crohn's disease of large intestine without complications (principal); M81.0 Age-related osteoporosis without current pathological fracture; Z79.899 Other long term (current) drug therapy; Z91.02 Food additives allergy status; Z80.0 Family history of malignant neoplasm of digestive organs
CPT/HCPCS: A9270; J1720; J7050; Q5103

== ENCOUNTER 2024-06-22 04:44 | Day surgery (SDC) | payer OTHER ==
[~2024-06-22] VITALS: Wt 70.7 kg
[2024-06-22] MEDS ORDERED: Infliximab-DYYB 700 MG in NS 250 ML IV SCH (06:00)
[2024-06-22] MEDS ORDERED: Acetaminophen 325 MG TABLET PO SCH (07:10)
[2024-06-22] MEDS ORDERED: DiphenhydrAMINE HCL 25 MG Cap PO SCH (07:10)
[2024-06-22] MEDS ORDERED: Hydrocortisone Sod Succinate 100 MG Vial IV SCH (07:15)
[2024-06-22 08:53] VITALS: BP 143/80
== END 2024-06-22 11:35 | disposition home or self-care (01) ==
LOC: ATC 04:44
DX: K50.10 Crohn's disease of large intestine without complications (principal); M81.0 Age-related osteoporosis without current pathological fracture; Z80.0 Family history of malignant neoplasm of digestive organs
CPT/HCPCS: 96375; 96413; 96415; A9270; J1720; J7050; Q5103

== ENCOUNTER 2024-07-20 04:01 | Day surgery (SDC) | payer OTHER ==
[2024-07-20] MEDS ORDERED: Infliximab-DYYB 700 MG in NS 250 ML IV SCH (06:00)
[2024-07-20] MEDS ORDERED: Hydrocortisone Sod Succinate 100 MG Vial IV SCH (06:50)
[2024-07-20] MEDS ORDERED: Acetaminophen 325 MG TABLET PO SCH (06:50)
[2024-07-20] MEDS ORDERED: DiphenhydrAMINE HCL 25 MG Cap PO SCH (07:05)
[2024-07-20 08:55] VITALS: BP 124/67
== END 2024-07-20 11:54 | disposition home or self-care (01) ==
LOC: ATC 04:01
DX: K50.10 Crohn's disease of large intestine without complications (principal); Z80.0 Family history of malignant neoplasm of digestive organs
CPT/HCPCS: 96375; 96413; 96415; A9270; J1720; J7050; Q5103

== ENCOUNTER 2024-08-17 02:39 | Day surgery (SDC) | payer OTHER ==
[2024-08-17] MEDS ORDERED: Infliximab-DYYB 700 MG in NS 250 ML IV SCH (06:00)
[2024-08-17] MEDS ORDERED: Acetaminophen 325 MG TABLET PO SCH (06:55)
[2024-08-17] MEDS ORDERED: Hydrocortisone Sod Succinate 100 MG Vial IV SCH (06:55)
[2024-08-17] MEDS ORDERED: DiphenhydrAMINE HCL 25 MG Cap PO SCH (06:55)
[2024-08-17 08:52] VITALS: BP 126/70
== END 2024-08-17 11:35 | disposition home or self-care (01) ==
LOC: ATC 02:39
DX: K50.10 Crohn's disease of large intestine without complications (principal); M81.0 Age-related osteoporosis without current pathological fracture; E55.9 Vitamin D deficiency, unspecified; Z80.0 Family history of malignant neoplasm of digestive organs
CPT/HCPCS: 96375; 96413; 96415; A9270; J1720; J7050; Q5103

== ENCOUNTER 2024-09-14 01:21 | Day surgery (SDC) | payer OTHER ==
[~2024-09-14] VITALS: Wt 70.0 kg
[2024-09-14] MEDS ORDERED: Infliximab-DYYB 700 MG in NS 250 ML IV SCH (06:00)
[2024-09-14] MEDS ORDERED: Hydrocortisone Sod Succinate 100 MG Vial IV SCH (07:00)
[2024-09-14] MEDS ORDERED: Acetaminophen 325 MG TABLET PO SCH (07:00)
[2024-09-14] MEDS ORDERED: DiphenhydrAMINE HCL 25 MG Cap PO SCH (07:00)
[2024-09-14 08:48] VITALS: BP 140/76
== END 2024-09-14 11:34 | disposition home or self-care (01) ==
LOC: ATC 01:21
DX: K50.10 Crohn's disease of large intestine without complications (principal); M81.0 Age-related osteoporosis without current pathological fracture; Z80.0 Family history of malignant neoplasm of digestive organs
CPT/HCPCS: 96375; 96413; 96415; A9270; J1720; J7050; Q5103

== ENCOUNTER 2024-10-11 03:40 | Day surgery (SDC) | payer OTHER ==
[~2024-10-11] VITALS: Wt 70.9 kg
[2024-10-11] MEDS ORDERED: Infliximab-DYYB 700 MG in NS 250 ML IV SCH (06:00)
[2024-10-11 08:54] VITALS: BP 124/72
== END 2024-10-11 11:26 | disposition home or self-care (01) ==
LOC: ATC 03:40
DX: K50.10 Crohn's disease of large intestine without complications (principal); Z80.0 Family history of malignant neoplasm of digestive organs; Z91.018 Allergy to other foods
CPT/HCPCS: 96375; 96413; 96415; A9270; J1720; J7050; Q5103

== ENCOUNTER 2024-11-09 03:43 | Day surgery (SDC) | payer OTHER ==
[2024-11-09] MEDS ORDERED: Infliximab-DYYB 700 MG in NS 250 ML IV SCH (07:00)
[2024-11-09 08:56] VITALS: BP 124/69
== END 2024-11-09 11:36 | disposition home or self-care (01) ==
LOC: ATC 03:43
DX: K50.10 Crohn's disease of large intestine without complications (principal); M81.0 Age-related osteoporosis without current pathological fracture; Z79.899 Other long term (current) drug therapy; Z80.0 Family history of malignant neoplasm of digestive organs
CPT/HCPCS: 96375; 96413; 96415; A9270; J1720; J7050; Q5103

== ENCOUNTER 2024-12-07 02:41 | Day surgery (SDC) | payer OTHER ==
[2024-12-07] MEDS ORDERED: Infliximab-DYYB 700 MG in NS 250 ML IV SCH (06:00)
[2024-12-07 09:23] VITALS: BP 134/75
== END 2024-12-07 12:11 | disposition home or self-care (01) ==
LOC: ATC 02:41
DX: K50.10 Crohn's disease of large intestine without complications (principal); Z80.0 Family history of malignant neoplasm of digestive organs; Z91.09 Other allergy status, other than to drugs and biological substances
CPT/HCPCS: 96375; 96413; 96415; A9270; J1720; J7050; Q5103

== ENCOUNTER 2025-01-04 00:04 | Day surgery (SDC) | payer OTHER ==
[~2025-01-04] VITALS: Wt 67.2 kg
[2025-01-04] MEDS ORDERED: Infliximab-DYYB 700 MG in NS 250 ML IV SCH (06:00)
[2025-01-04 08:45] VITALS: BP 131/70
== END 2025-01-04 11:23 | disposition home or self-care (01) ==
LOC: ATC 00:04
DX: K50.10 Crohn's disease of large intestine without complications (principal); Z91.02 Food additives allergy status; Z80.0 Family history of malignant neoplasm of digestive organs
CPT/HCPCS: 96375; 96413; 96415; A9270; J1720; J7050; Q5103

== ENCOUNTER 2025-02-01 00:42 | Day surgery (SDC) | payer OTHER ==
[~2025-02-01] VITALS: Wt 67.1 kg
[2025-02-01] MEDS ORDERED: Infliximab-DYYB 700 MG in NS 250 ML IV SCH (06:00)
[2025-02-01 09:14] VITALS: BP 148/90
== END 2025-02-01 11:36 | disposition home or self-care (01) ==
LOC: ATC 00:42
DX: K50.10 Crohn's disease of large intestine without complications (principal); M81.0 Age-related osteoporosis without current pathological fracture; Z79.899 Other long term (current) drug therapy; Z91.02 Food additives allergy status; Z80.0 Family history of malignant neoplasm of digestive organs
CPT/HCPCS: 96375; 96413; 96415; A9270; J1720; J7050; Q5103

== ENCOUNTER 2025-03-04 00:10 | Day surgery (SDC) | payer OTHER ==
[2025-03-04] MEDS ORDERED: Infliximab-DYYB 700 MG in NS 250 ML IV SCH (06:00)
[2025-03-04 07:30] VITALS: BP 110/65
[2025-03-04 08:14] VITALS: BP 117/61
== END 2025-03-04 10:32 | disposition home or self-care (01) ==
LOC: ATC 00:10
DX: K50.10 Crohn's disease of large intestine without complications (principal); M81.0 Age-related osteoporosis without current pathological fracture; Z79.899 Other long term (current) drug therapy; Z91.02 Food additives allergy status; Z80.0 Family history of malignant neoplasm of digestive organs
CPT/HCPCS: 96374; 96413; 96415; A9270; J1720; J7050; Q5103

== ENCOUNTER 2025-03-29 01:03 | Day surgery (SDC) | payer OTHER ==
[~2025-03-29] VITALS: Wt 66.7 kg
[2025-03-29] MEDS ORDERED: Infliximab-DYYB 700 MG in NS 250 ML IV SCH (06:00)
[2025-03-29 08:59] VITALS: BP 122/70
== END 2025-03-29 11:38 | disposition home or self-care (01) ==
LOC: ATC 01:03
DX: K50.10 Crohn's disease of large intestine without complications (principal); M81.0 Age-related osteoporosis without current pathological fracture; Z79.899 Other long term (current) drug therapy; Z91.02 Food additives allergy status; Z80.0 Family history of malignant neoplasm of digestive organs
CPT/HCPCS: 96374; 96413; 96415; A9270; J7050; Q5103